=== PATIENT | female | born 1950 | race Caucasian/White ===

== ENCOUNTER → 2016-08-13 | Outpatient (CLI) | payer OTHER | LOC: BHFA 09:15 | PROVIDERS: ATTEND Internal Medicine Cardiovascular Disease | DX: Z51.11 Encounter for antineoplastic chemotherapy (principal) ==

== ENCOUNTER → 2016-10-08 | Outpatient (CLI) | payer OTHER | LOC: FIMAGING 09:26 | PROVIDERS: ATTEND Internal Medicine Hematology & Oncology | DX: C50.812 Malignant neoplasm of overlapping sites of left female breast (principal); C79.51 Secondary malignant neoplasm of bone | CPT/HCPCS: 78306; A9503 ==

== ENCOUNTER → 2016-11-12 | Outpatient (CLI) | payer OTHER | LOC: BHFA 14:45 | PROVIDERS: ATTEND Internal Medicine Cardiovascular Disease | DX: Z51.89 Encounter for other specified aftercare (principal) ==

== ENCOUNTER → 2017-02-03 | Outpatient (CLI) | payer OTHER | LOC: FIMAGING 09:18 | PROVIDERS: ATTEND Physician Assistant | DX: C79.51 Secondary malignant neoplasm of bone (principal); C50.812 Malignant neoplasm of overlapping sites of left female breast | CPT/HCPCS: 78306; A9503 ==

== ENCOUNTER → 2017-03-30 | Outpatient (CLI) | payer OTHER | LOC: FIMAGING 10:48 | PROVIDERS: ATTEND Internal Medicine Hematology & Oncology | DX: Z45.2 Encounter for adjustment and management of vascular access device (principal) ==

== ENCOUNTER → 2017-04-28 | Outpatient (CLI) | payer OTHER | LOC: FIMAGING 08:12 | PROVIDERS: ATTEND Internal Medicine Hematology & Oncology | PROC: CP1Z1ZZ Planar Nuclear Medicine Imaging of Musculoskeletal System, All using Technetium 99m (Tc-99m) (ICD-10-PCS; principal; 2017-04-28) | DX: C79.51 Secondary malignant neoplasm of bone (principal); C50.812 Malignant neoplasm of overlapping sites of left female breast | CPT/HCPCS: 78306; A9503 ==

== ENCOUNTER → 2017-05-27 | Outpatient (CLI) | payer OTHER ==
[~2017-05-27] MED LIST: GADOBUTROL 10 ML VIAL IVP ONE
== END ==
LOC: FIMAGING 19:26
PROVIDERS: ATTEND Nurse Practitioner
DX: R22.0 Localized swelling, mass and lump, head (principal); C50.812 Malignant neoplasm of overlapping sites of left female breast; D70.1 Agranulocytosis secondary to cancer chemotherapy
CPT/HCPCS: 70553; A9585

== ENCOUNTER 2018-08-17 16:27 | Inpatient (IN) | payer OTHER ==
[2018-08-17] MEDS ORDERED: AZITHROMYCIN IV 500 MG in NS 250 ML IV ONE (18:24)
--- NOTE | 2018-08-17 18:27 | EDPHY ---
H & P Stated Complaint: Pt SOB and fatigue x5D, syncopex2, SpO2 73RA, placed on O2, Rlung crackles Time Seen by Provider: 08/17/18 17:04 HPI/ROS: CHIEF COMPLAINT: Shortness of breath HISTORY OF PRESENT ILLNESS: 68-year-old female with stage IV breast cancer presents with shortness of breath. Onset of shortness of breath 2 weeks ago, gradually increasing. Now short of breath at rest. Oxygen saturation was 72% on room air prior to arrival. Associated with a cough x1 day and generalized weakness. Intermittent vomiting and diarrhea throughout last few weeks secondary to chemotherapy. No other URI symptoms or fever. Last chemotherapy was yesterday. REVIEW OF SYSTEMS: complete 10 point ROS reviewed and is negative except for the noted elements in the HPI - Personal History Current Tetanus/Diphtheria Vaccine: Yes Tetanus Vaccine Date: 05/26/12 - Medical/Surgical History PMH: Stage IV breast cancer Hx Asthma: No Hx Chronic Respiratory Disease: No Hx Diabetes: No Hx Cardiac Disease: No Hx Renal Disease: No Hx Cirrhosis: No Hx Alcoholism: No Hx HIV/AIDS: No Hx Splenectomy or Spleen Trauma: No Other PMH: Collagenous colitis, hypothyroid, depression, knee surgery , shoulder surgery 12 - Social History Smoking Status: Never smoked Alcohol Use: Sober Drug Use: None - Physical Exam Exam: General Appearance: Alert, pleasant, nontoxic-appearing Eyes: Pupils equal and round, no conjunctival pallor or injection ENT, Mouth: Mucous membranes moist Neck: Normal inspection Respiratory: Lungs are clear to auscultation Cardiovascular: Regular rate and rhythm Gastrointestinal: Abdomen is soft and nontender Neurological: A&O, nonfocal exam Skin: Warm and dry, no rash Ext: Nontender, no pedal edema Psychiatric: Mood and affect normal Constitutional: Initial Vital Signs Temperature (C) 36.4 C 08/17/18 16:41 Heart Rate 83 08/17/18 16:41 Respiratory Rate 18 08/17/18 16:41 Blood Pressure 111/63 08/17/18 16:41 O2 Sat (%) 92 08/17/18 16:41 O2 Delivery Mode Nasal Cannula O2 (L/minute) 3 Allergies/Adverse Reactions: SEASONAL Allergy (Intermediate, Uncoded 06/22/12 10:18) RUNNY NOSE/ ITCHY EYES Home Medications: Medication Instructions Recorded Citalopram [CeleXA 20 MG] 20 mg PO DAILY 11/29/13 Herbals/Supplements -Info Only 1 ea PO DAILY 12/14/15 Acetaminophen [Tylenol 325mg (*)] 325 mg PO BID 08/17/18 Ascorbic Acid [Vitamin C 500 mg 500 mg PO DAILY 08/17/18 (*)] Levothyroxine [Synthroid 50 mcg 50 mcg PO DAILY06 08/17/18 (*)] Neratinib Maleate [Nerlynx] 200 mg PO HS 08/17/18 Ondansetron HCl [Zofran] 8 mg PO BID 08/17/18 Pantoprazole Sodium [Protonix 40mg 40 mg PO DAILY 08/17/18 (*)] Silver Sulfadiazine [Ssd] 1 priti TP Q2D PRN 08/17/18 morphINE SR [Ms Contin/Oramorph 15 15 mg PO BID 08/17/18 mg (*)] oxyCODONE IR [Oxycodone Ir (*)] 5 mg PO Q6 PRN 08/17/18 Medical Decision Making - Diagnostics Imaging Results: Chest X-Ray 08/17/18 16:48 Impression: 1. Bilateral perihilar hazy opacities with retrocardiac reticulation. Findings may represent pneumonia or pneumonitis. 2. Enlarging left lung nodule. CT pulmonary angiogram reveals bilateral infiltrates consistent with pneumonia, as well as pulmonary embolism. Imaging: Discussed imaging studies w/ call center support consultant Radiologist, I viewed and interpreted images myself ED Course/Re-evaluation: This patient presents with gradually increasing shortness of breath, associated with cough. Chest x-ray reveals bilateral infiltrates, consistent with pneumonia. Leukocytosis present. Initial lactate is normal. Blood cultures were drawn and Rocephin and Zithromax IV given for probable pneumonia. The hospitalist service was consulted for admission. 7pm: Ddimer elevated, CTA chest ordered. CT pulmonary angiogram reveals bilateral pneumonia as well as pulmonary embolism. These results were discussed with Dr. Drew, as the patient had already gone to the floor for admission. He will decide on appropriate anticoagulation for this patient. Differential Diagnosis: Differential diagnosis includes though it is not limited to pneumonia, pneumothorax, pulmonary embolism, aortic dissection, pericarditis, acute coronary syndrome. - Data Points Laboratory Results: Laboratory Results 08/17/18 18:25 08/17/18 18:25 Microbiology Results: MICROBIOLOGY 08/17/18 18:45 Blood Blood Culture - Preliminary 08/17/18 18:25 Blood Blood Culture - Preliminary Medications Given: Albuterol (Proventil Neb) 3 ml IH Q4H PRN PRN Reason: WHEEZING/DYSPNEA Stop: 02/14/19 11:44 Last Admin: 08/19/18 13:33 Dose: 3 ml Azithromycin (Zithromax) 500 mg PO DAILY ANA PRN Reason: Protocol Stop: 09/17/18 08:59 Last Admin: 08/19/18 08:57 Dose: 500 mg Citalopram Hydrobromide (Celexa) 20 mg PO DAILY ANA Stop: 02/14/19 08:59 Last Admin: 08/19/18 08:57 Dose: 20 mg Enoxaparin Sodium (Lovenox) 48 mg SC BID [facility] Stop: 02/14/19 10:44 Last Admin: 08/19/18 09:00 Dose: 48 mg Ceftriaxone Sodium/Dextrose (Rocephin 1 Gm (Premix)) 50 mls @ 100 mls/hr IV DAILY ANA PRN Reason: Protocol Stop: 09/17/18 08:59 Last Admin: 08/19/18 08:57 Dose: 50 mls Levothyroxine Sodium (Synthroid) 50 mcg PO DAILY06 [facility] Stop: 02/14/19 05:59 Last Admin: 08/19/18 08:57 Dose: 50 mcg Miscellaneous Medication (Neratinib Maleate [Nerlynx]) 200 mg PO HS [facility] Stop: 02/13/19 21:14 Last Admin: 08/17/18 22:01 Dose: Not Given Morphine Sulfate (Ms Contin/Oramorph) 15 mg PO BID ANA Stop: 08/27/18 21:14 Last Admin: 08/19/18 08:58 Dose: 15 mg Ondansetron HCl (Zofran) 4 mg IVP Q4HRS PRN PRN Reason: Nausea/Vomiting, Can't Take PO Stop: 02/13/19 19:45 Last Admin: 08/17/18 19:45 Dose: 4 mg Ondansetron HCl (Zofran Odt) 4 mg PO Q4HRS PRN PRN Reason: Nausea/Vomiting, Use 1st Stop: 02/13/19 19:45 Last Admin: 08/17/18 20:49 Dose: 4 mg Oxycodone HCl (Oxycodone Ir) 5 mg PO Q6 PRN PRN Reason: Pain, Severe Able to Take PO Stop: 08/27/18 21:13 Last Admin: 08/19/18 03:41 Dose: 5 mg Pantoprazole Sodium (Protonix) 40 mg PO DAILY [facility] Stop: 02/14/19 08:59 Last Admin: 08/19/18 08:58 Dose: 40 mg Promethazine HCl (Phenergan) 12.5 mg IVP Q6HRS PRN PRN Reason: Nausea/Vomiting, Can't Take PO Stop: 02/13/19 20:40 Last Admin: 08/17/18 21:03 Dose: 12.5 mg Discontinued Medications Albuterol/Ipratropium (Duoneb) 3 ml IH QID [facility] Stop: 02/13/19 20:59 Last Admin: 08/17/18 21:13 Dose: 3 ml Azithromycin 500 mg/ Sodium (Chloride) 255 mls @ 255 mls/hr IV EDNOW ONE PRN Reason: Protocol Stop: 08/17/18 19:23 Last Admin: 08/17/18 19:23 Dose: 255 mls Ceftriaxone Sodium/Dextrose (Rocephin 1 Gm (Premix)) 50 mls @ 100 mls/hr IV EDNOW ONE PRN Reason: Protocol Stop: 08/17/18 18:53 Last Admin: 08/17/18 18:49 Dose: 50 mls Sodium Chloride (Ns) 1,000 mls @ 0 mls/hr IV ONCE ONE; Wide Open PRN Reason: Protocol Stop: 08/17/18 18:41 Last Admin: 08/17/18 18:53 Dose: 1,000 mls Methylprednisolone Sodium Succinate (Solu-Medrol) 60 mg IVP Q6HRS [facility] Stop: 02/15/19 11:59 Last Admin: 08/19/18 13:07 Dose: 60 mg Oxycodone HCl (Oxycodone Ir) 5 - 10 mg PO Q3HRS PRN PRN Reason: Pain, Severe Able to Take PO Stop: 08/27/18 19:45 Last Admin: 08/17/18 20:54 Dose: 10 mg Departure - Departure Disposition: [facility] Inpatient Acute Clinical Impression: Pneumonia Qualifiers: Pneumonia type: due to unspecified organism Laterality: bilateral Lung location : unspecified part of lung Qualified Code(s): J18.9 - Pneumonia, unspecified organism Pulmonary embolism Qualifiers: Pulmonary embolism type: unspecified Chronicity: acute Acute cor pulmonale presence: without acute cor pulmonale Qualified Code(s): I26.99 - Other pulmonary embolism without acute cor pulmonale Condition: Serious
[2018-08-17 18:37] LABS: PLATELET COUNT 282 10^3/uL (150-400)
[2018-08-17] MEDS ORDERED: NS 1,000 ML IV ONE (18:40)
[2018-08-17] MEDS ORDERED: IOHEXOL 350mgI/ML (OMNIPAQUE) 150 ML BTL IV ONE (19:11)
[2018-08-17] MEDS ORDERED: ONDANSETRON 4 MG/2 ML VIAL ONE (19:41)
[2018-08-17] MEDS: ONDANSETRON 4 MG/2 ML VIAL IVP PRN (19:45)
[2018-08-17] MEDS ORDERED: oxyCODONE IR 5 MG TAB PO PRN (19:46)
[2018-08-17] MEDS ORDERED: ONDANSETRON DISINTEGRATING 4 MG TAB PO PRN (19:46)
[2018-08-17] MEDS ORDERED: ALBUTEROL 60 PUFFS/8 GM MDI IH PRN (19:46)
[2018-08-17] MEDS ORDERED: ACETAMINOPHEN 325 MG TAB PO PRN (19:46)
[2018-08-17] MEDS ORDERED: PROMETHAZINE HCL 25 MG/ML INJ IVP PRN (20:41)
[2018-08-17] MEDS ORDERED: IPRATROPIUM/ALBUTEROL 3 ML DEYVIAL IH SCH (21:00)
--- NOTE | 2018-08-17 21:00 | CPEKG ---
Test Reason : OPEN Blood Pressure : / mmHG Vent. Rate : 067 BPM Atrial Rate : 068 BPM P-R Int : 157 ms QRS Dur : 093 ms QT Int : 451 ms P-R-T Axes : 047 003 -14 degrees QTc Int : 476 ms Sinus rhythm Abnrm T, consider ischemia, anterolateral lds Confirmed by Coby Beaulieu ([id number]) on 08/17/2018 9:00:17 PM Referred By: Coby Beaulieu Confirmed By:Coby Beaulieu
[2018-08-17] MEDS ORDERED: SILVER SULFADIAZINE 50 GM JAR TP PRN (21:14)
[2018-08-17] MEDS ORDERED: [UNRECOGNIZED DRUG - OTHER] PO SCH (21:15)
--- NOTE | 2018-08-17 21:54 | PDGENHP ---
History and Physical - Chief Complaint shortness of breath, fatigue - History of Present Illness 68yo F with breast cancer with metastases to brain, bone, lung, and skin presents with shortness of breath and fatigue. These symptoms started acutely after beginning a new anti-cancer therapy, neratinib in early July. She reports that her oncologist had reduced the dose of this medication but she was still exquisitely fatigued so came to ED today. She was found to have an oxygen saturation of 72% on room air. CXR shows what appeared to be bilateral pneumonia and she was given a dose of ceftriaxone and azithromycin. Given her history of malignancy and an elevated d-dimer, CTA of her chest was performed which showed right middle lobe PE and bilateral lower lobe infiltrates with air bronchograms. She is being admitted for further management. Case discussed with ED physician Coby Beaulieu. History Information - Allergies/Home Medication List Allergies/Adverse Reactions: SEASONAL Allergy (Intermediate, Uncoded 06/22/12 10:18) RUNNY NOSE/ ITCHY EYES Home Medications: Citalopram [CeleXA 20 MG] 20 mg PO DAILY 11/29/13 [Last Taken 08/17/18] Herbals/Supplements -Info Only 1 ea PO DAILY 12/14/15 [Last Taken 12/14/15] Acetaminophen [Tylenol 325mg (*)] 325 mg PO BID 08/17/18 [Last Taken 08/17/18] Ascorbic Acid [Vitamin C 500 mg (*)] 500 mg PO DAILY 08/17/18 [Last Taken ] Levothyroxine [Synthroid 50 mcg (*)] 50 mcg PO DAILY06 08/17/18 [Last Taken 11/28] Neratinib Maleate [Nerlynx] 200 mg PO HS 08/17/18 [Last Taken 08/15/18] Ondansetron HCl [Zofran] 8 mg PO BID 08/17/18 [Last Taken 08/17/18] Pantoprazole Sodium [Protonix 40mg (*)] 40 mg PO DAILY 08/17/18 [Last Taken 11/28] Silver Sulfadiazine [Ssd] 1 priti TP Q2D PRN 08/17/18 [Last Taken 08/15/18] morphINE SR [Ms Contin/Oramorph 15 mg (*)] 15 mg PO BID 08/17/18 [Last Taken 11/28] oxyCODONE IR [Oxycodone Ir (*)] 5 mg PO Q6 PRN 08/17/18 [Last Taken Unknown] I have personally reviewed and updated: family history, medical history, social history, surgical history - Past Medical History Additional medical history: metastatic HER2 + breast cancer (brain s/p stereotactic resection 06/2018, lung, skin, bone), depression, peripheral neuropathy, memory loss, iron deficiency anemia - Surgical History Additional surgical history: bilateral mastectomy w/axillary node dissection (2013) - Family History Positive for: non-pertinent - Social History Smoking Status: Never smoked Alcohol Use: None Drug Use: None Review of Systems Review of Systems: ROS: 10pt was reviewed & negative except for what was stated in HPI & below Physical Exam Physical Exam: Temp Pulse Resp BP Pulse Ox 36.4 C 79 16 111/63 96 08/17/18 16:41 08/17/18 21:14 08/17/18 21:14 08/17/18 16:41 08/17/18 21:14 O2 (L/minute) 10 Constitutional: no apparent distress, appears nourished, not in pain Eyes: PERRL, anicteric sclera, EOMI Ears, Nose, Mouth, Throat: moist mucous membranes, hearing normal, ears appear normal, no oral mucosal ulcers Cardiovascular: regular rate and rhythym, no murmur, rub, or gallop, No JVD, No edema Respiratory: inspiratory crackles, respiratory distress, No expiratory wheeze Gastrointestinal: normoactive bowel sounds, soft, non-tender abdomen, no palpable masses Genitourinary: no bladder fullness, no bladder tenderness Skin: warm Musculoskeletal: full muscle strength Neurologic: AAOx3, CN II-XII Intact, other (intermittently forgetful) Psychiatric: interacting appropriately Lab Data & Imaging Review 08/17/18 18:25 08/17/18 18:25 WBC 15.31 10^3/uL (3.80-9.50) H 08/17/18 18:25 RBC 2.86 10^6/uL (4.18-5.33) L 08/17/18 18:25 Hgb 9.8 g/dL (12.6-16.3) L 08/17/18 18:25 Hct 28.9 % (38.0-47.0) L 08/17/18 18:25 MCV 101.0 fL (81.5-99.8) H 08/17/18 18:25 MCH 34.3 pg (27.9-34.1) H 08/17/18 18:25 MCHC 33.9 g/dL (32.4-36.7) 08/17/18 18:25 RDW 13.8 % (11.5-15.2) 08/17/18 18:25 Plt Count 282 10^3/uL (150-400) 08/17/18 18:25 MPV 9.5 fL (8.7-11.7) 08/17/18 18:25 Neut % (Auto) Not Reported 08/17/18 18:25 Lymph % (Auto) Not Reported 08/17/18 18:25 [place] % (Auto) Not Reported 08/17/18 18:25 Eos % (Auto) Not Reported 08/17/18 18:25 Baso % (Auto) Not Reported 08/17/18 18:25 Nucleat RBC Rel Count Not Reported 08/17/18 18:25 Absolute Neuts (auto) Not Reported 08/17/18 18:25 Absolute Lymphs (auto) Not Reported 08/17/18 18:25 Absolute Monos (auto) Not Reported 08/17/18 18:25 Absolute Eos (auto) Not Reported 08/17/18 18:25 Absolute Basos (auto) Not Reported 08/17/18 18:25 Absolute Nucleated RBC Not Reported 08/17/18 18:25 Immature Gran % Not Reported 08/17/18 18:25 Seg Neutrophils % 90.0 % 08/17/18 18:25 Band Neutrophils % 0.0 % 08/17/18 18:25 Lymphocytes % 2.0 % 08/17/18 18:25 Monocytes % 8.0 % 08/17/18 18:25 Eosinophils % 0.0 % 08/17/18 18:25 Basophils % 0.0 % 08/17/18 18:25 Metamyelocytes % 0.0 % 08/17/18 18:25 Myelocytes % 0.0 % 08/17/18 18:25 Promyelocytes % 0.0 % 08/17/18 18:25 Blast Cells % 0.0 % 08/17/18 18:25 Immature Gran # Not Reported 08/17/18 18:25 Absolute Seg Neuts 13.78 10^3/uL (1.70-6.50) H 08/17/18 18: Absolute Band Neuts 0.00 10^3/uL (0.00-0.70) 08/17/18 18:25 Absolute Lymphocytes 0.31 10^3/uL (1.00-3.00) L 08/17/18 18: Absolute Monocytes 1.22 10^3/uL (0.30-0.80) H 08/17/18 18: Absolute Eosinophils 0.00 10^3/uL (0.03-0.40) L 08/17/18 18: Absolute Basophils 0.00 10^3/uL (0.02-0.10) L 08/17/18 18: Absolute Metamyelocyte 0.00 10^3/mL (0.00-0.00) 08/17/18 18: Absolute Myelocytes 0.00 10^3/mL (0.00-0.00) 08/17/18 18: Absolute Promyelocytes 0.00 10^3/uL (0.00-0.00) 08/17/18 18: Absolute Plasma Cells 0.00 10^3/uL (0.00-0.00) 08/17/18 18: Nucleated RBCs 0 /100 WBC (0-0) 08/17/18 18: Absolute Blast Cells 0.00 10^3/uL (0.00-0.00) 08/17/18 18: Plasma Cells % 0.0 % 08/17/18 18: Platelet Estimate ADEQUATE (ADEQ) 08/17/18 18:25 Oval Macrocytes 1+ H 08/17/18 18:25 D-Dimer 9.84 ug/mLFEU (0.00-0.50) H 08/17/18 18:25 VBG Lactic Acid 1.7 mmol/L (0.7-2.1) 08/17/18 18:25 Sodium 133 mEq/L (135-145) L 08/17/18 18:25 Potassium 3.8 mEq/L (3.5-5.2) 08/17/18 18:25 Chloride 109 mEq/L (97-110) 08/17/18 18:25 Carbon Dioxide 16 mEq/l (22-31) L 08/17/18 18:25 Anion Gap 8 mEq/L (6-14) 08/17/18 18:25 BUN 31 mg/dL (7-23) H 08/17/18 18:25 Creatinine 1.0 mg/dL (0.6-1.0) 08/17/18 18:25 Estimated GFR 55 08/17/18 18:25 Glucose 108 mg/dL (70-100) H 08/17/18 18:25 Calcium 7.7 mg/dL (8.5-10.4) L 08/17/18 18:25 NT-Pro-B Natriuret Pep 3490 pg/mL (0-125) H 08/17/18 18:25 Interpretation: CXR: bilateral lower lung field alveolar and interstitial opacities, no effusions, normal heart size, chest port in place EKG additional interpertation: ECG: NSR, no significant right heart strain, no acute ischemia Assessment & Plan Assessment: 68yo F with breast cancer with metastases to brain, bone, lung, and skin presents with shortness of breath and fatigue found to be hypoxic. Evaluation revealed PE and pneumonia vs pneumonitis. Plan: 1. Acute hypoxemic respiratory failure: Evidenced by respiratory distress and O2 saturation of 72% on room air. Due to PE and airspace disease. - Management of lung issues per below. Wean supplemental O2 as able 2. Pulmonary embolus: Acute vs subacute. At risk with cancer. PESI score 120 indicating high risk. BNP elevated but no right heart strain on CT. - I recommended starting weight based LMWH. She does have brain metastases but it's my opinion that benefits of anticoagulation outweigh risks in this situation. - Patient refusing this intervention, wants to discuss further with family and oncology. I explained the risks of not anticoagulating - worsening clot propagation, hypoxia, right heart strain, shock, . 3. Bilateral groundglass opacities: Query pneumonia vs chemo-induced pneumonitis. Resp viral PCR negative. - Treat for CAP with CTX and azithromycin for now - Check procalcitonin - Holding neratinib 4. Metastatic breast cancer - Alert oncology of admission in AM 5. Anemia: Hgb slightly lower than baseline. Would monitor closely once/if anticoagulation started. 6. Memory loss: Related to brain mets. She is oriented but frequently forgetful when speaking with her. Code: DNR Diet: regular Dispo: Admit as inpatient
[2018-08-17] MEDS: morphINE SR 15 MG TAB PO SCH (21:59)
[2018-08-17] MEDS ORDERED: ENOXAPARIN 60 MG/0.6 ML SYR SC SCH (23:30)
[2018-08-18] MEDS: LEVOTHYROXINE 50 MCG TAB PO SCH (05:36)
[2018-08-18 06:07] LABS: PLATELET COUNT 241 10^3/uL (150-400)
[2018-08-18] MEDS: AZITHROMYCIN 250 MG TAB PO SCH (08:36)
[2018-08-18] MEDS: PANTOPRAZOLE SODIUM 40 MG TAB PO SCH (08:36)
[2018-08-18] MEDS: morphINE SR 15 MG TAB PO SCH ×2 (08:36→20:13)
[2018-08-18] MEDS: CITALOPRAM 20 MG TAB PO SCH (08:37)
[2018-08-18] MEDS ORDERED: ENOXAPARIN 40 MG/0.4 ML SYR SC SCH (09:00)
[2018-08-18] MEDS ORDERED: ALTEPLASE 2 MG VIAL IVP PRN (10:56)
[2018-08-18] MEDS: ENOXAPARIN 60 MG/0.6 ML SYR SC SCH ×2 (11:51→20:11)
[2018-08-18] MEDS: ALBUTEROL 3 ML DEYVIAL IH PRN (12:04)
--- NOTE | 2018-08-18 17:11 | HOSPPROG ---
Hospitalist Progress Note Assessment/Plan: 68-year-old female with past medical history of stage IV metastatic breast cancer, with mets to the brain bone and lung admitted with acute pulmonary embolism and likely bacterial pneumonia. Plan: Acute hypoxemic respiratory failure: Requiring 15 L high-flow mask currently. Etiology likely secondary to pneumonia and pulmonary embolism. Initially refused Lovenox treatment but after some discussion with patient and family now amenable to it. -treat pneumonia with Rocephin and azithromycin -treat PE with Lovenox twice daily -oxygen p.r.n. -nebs -monitor cultures Pulmonary embolus: CT reviewed showing subsegmental pulmonary embolus. Patient initially refusing Lovenox. After some discussion patient and family more amenable to it now. I discussed the case with Hematology/Oncology who, despite brain Mets, feels anticoagulation is warranted given her respiratory status. -start Lovenox now Bilateral groundglass opacities: Query pneumonia vs chemo-induced pneumonitis. Resp viral PCR negative. - Treat for CAP with CTX and azithromycin for now - Holding neratinib Metastatic breast cancer- oncology will see patient while here. Discussion with patient's family suggest prognosis is grim. - oncology will see patient today Anemia: Hgb slightly lower than baseline. Would monitor closely once/if anticoagulation started. Memory loss: Related to brain mets. She is oriented but frequently forgetful when speaking with her. Fluids- gentle intravenous saline Electrolytes- within normal limits Nutrition regular diet Cor DNR Dispo inpatient for acute hypoxemic respiratory failure with acute pulmonary embolus and bacterial pneumonia in setting of stage IV metastatic breast cancer Subjective: Patient short of breath but in no pain Objective: Vital Signs Temp Pulse Resp BP Pulse Ox 37.3 C 96 18 101/50 L 94 08/18/18 12:00 08/18/18 12:00 08/18/18 12:00 08/18/18 12:00 08/18/18 12:00 Laboratory Results 08/18/18 05:43 08/18/18 05:43 08/17/18 08/18/18 08/19/18 05:59 05:59 05:59 Intake Total 25 Balance 25 - Physical Exam Constitutional: chronically ill appearing, cachectic Eyes: PERRL, anicteric sclera, EOMI Ears, Nose, Mouth, Throat: moist mucous membranes, hearing normal, ears appear normal, no oral mucosal ulcers Cardiovascular: tachycardia Respiratory: reduced air movement, inspiratory crackles Gastrointestinal: normoactive bowel sounds, soft, non-tender abdomen, no palpable masses Genitourinary: no bladder fullness, no bladder tenderness, no renal bruits Skin: no rashes or abrasions, no fluctuance, no induration Musculoskeletal: generalized weakness Neurologic: AAOx3 Psychiatric: poor memory Lymph, Heme, Immunologic: no cervical LAD ICD10 Worksheet Patient Problems: Problems Problem Status Onset Adenocarcinoma of breast Acute Breast cancer metastasized to brain Acute
--- NOTE | 2018-08-18 18:21 | ASMTCMCOM ---
CM Note CM Note Notes: Pt admitted to hospital with sob, angio CT shows PE. Pt also has a hx of breast ca w/mets. Currently on 15L O2, dc needs uncertain, CM w/f. DC Plan: TBD Date Signed: 08/18/2018 06:20 PM Electronically Signed By:Larissa Olvera RN
--- NOTE | 2018-08-18 18:30 | GCON ---
[f rep st] CONSULTATION MEDICAL ONCOLOGY FOLLOWUP CONSULTATION REFERRING PHYSICIAN: Danni Roberst NP REASON FOR CONSULTATION: Ongoing management of relapsed refractory breast cancer, pulmonary embolism , and hypoxia. RECOMMENDATIONS: 1. Agree with empiric antibiotic therapy of the patient's pulmonary infiltrates. 2. Agree with Lovenox for her pulmonary embolism. 3. Would consider placing patient on steroids if her respiratory status deteriorates. 4. Further treatment of the patient's metastatic breast cancer will need to be discussed after her s tabilization. The question will be whether we think that the pneumonitis ultimately is related to ei ther her paclitaxel or neratinib. ASSESSMENT: This is a 68-year-old white female with history of metastatic breast cancer that is trip le positive, is now admitted with increasing shortness of breath and weakness. This came on over a p eriod of several days. She was very lightheaded. She was admitted to [facility] and found to have right lower lobe pulmonary embolism, as well as significant hypoxia, and changes consi stent pneumonitis in her lungs, as well as enlarging nodules. It is currently unclear as to the etio logy of her pneumonitis. This could potentially be related to infection, but evaluation for a viral etiology was negative. She could have potentially interstitial infiltration with her breast cancer o r could potentially be a pneumonitis related to paclitaxel. I do not see where neratinib was associa diya with pneumonitis, but there was a temporal relation to her increasing shortness of breath and sta rting the neratinib. The patient understands she is nearly at the end of her options for therapy. She wishes to be do not resuscitate and has also been evaluating her rights under the Medical Aid in Dying Act; however, hav ing said that, she is hopeful that she will have some good quality time left and that is her current goal. Her history of her breast cancer dates back to November of 2013. At that time, she had a T3 N2a di sease. She has had metastatic disease to her bones, lung, brain, and scalp. She was receptor positi ve, progesterone receptor positive, and HER-2 positive at 3+. Her treatment thus far has included a total mastectomy with axillary lymph node dissection in November of 2013. She had 4 positive lymph nodes. She had adjuvant Taxotere. For metastatic disease, she has had ado-trastuzumab emtansine. This wa s started in July 2015 for recurrent disease initially. She was also treated with pertuzumab and trastuzumab as part of her adjuvant therapy and that was in January of 2014, through the end of 2014. S he has had radiotherapy to metastatic sites of disease, including her scalp. Total dose was 3000 cGy . Her hormonal therapy has included anastrozole and fulvestrant. Her bone health agent has been zol edronic acid. PAST MEDICAL HISTORY: Otherwise been remarkable for hypothyroidism, depression, osteoarthritis, and collagenous colitis. PAST SURGICAL HISTORY: Remarkable for right knee surgery, left shoulder surgery, and her mastectomy with axillary node dissection. FAMILY HISTORY: Remarkable for father with prostate cancer, paternal aunt with pancreatic cancer, a sister dying of lung cancer, and another brother who had prostate cancer. There is no family history of ovarian cancer apparently. SOCIAL HISTORY: Patient does not smoke. 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 She has 1 daughter. REVIEW OF SYSTEMS: Remarkable for shortness of breath and extreme fatigue. She has had dizziness. She reports no significant pain, and no nausea or vomiting at this time. Ten-system review is, other verduzco, unremarkable. PHYSICAL EXAMINATION: GENERAL: Reveals a pale, but alert and conversant white female. She is curre ntly using an oxygen at 15 L via mask. LUNGS: Reveal diffuse rhonchi, rales, and rubs that are loud est in her right anterior lung field. CARDIAC: Shows a regular rhythm at this time. ABDOMEN: Norm al bowel sounds. Soft abdomen. No hepatosplenomegaly. LOWER EXTREMITIES: Show no significant stacie a. IMAGING: She was noted on CT angiogram of the chest to have subsegmental pulmonary emboli, right mid dle lobe. She had bilateral ground-glass opacities, which were more prominent in the right lower lob e. It shows bilateral pulmonary nodules, largest of which is 1.1 x 1.2 cm and also mucous plugging w ithin the bronchi. There is also a 1.3 x 1.2 cm round lesion within the right breast. She has galls tones and mediastinal and hilar lymphadenopathy. She is also noted to have osseous metastatic lesion s in her sternum and ribs. LABORATORY: Evaluation shows white count 11.06 with a hemoglobin of 9.5 and a platelet count of 241, 000. Her kidney function is normal with a creatinine of 0.9. Her calcium is slightly low at 7.1. Thank you very much for allowing us to participate in this pleasant woman's care. We will look forwa rd to assisting with her management. /[id number]/YENYL
--- NOTE | 2018-08-18 18:38 | PDMN ---
Medical Necessity Medical necessity: MCG M290 A-4 days: 68 yo w/ acute PE and bacterial pneumonia in setting of stage IV breast ca w/ mets brain/bone/lung in acute hypoxemic resp failure w/ SOB requiring 15L high flow mask still w/ difficulty maintain sats in 90s. Change to IP status 08/18/18@1706 per MD order.
[2018-08-19] MEDS: oxyCODONE IR 5 MG TAB PO PRN ×2 (03:41→19:50)
[2018-08-19] MEDS: CITALOPRAM 20 MG TAB PO SCH (08:57)
[2018-08-19] MEDS: AZITHROMYCIN 250 MG TAB PO SCH (08:57)
[2018-08-19] MEDS: LEVOTHYROXINE 50 MCG TAB PO SCH (08:57)
[2018-08-19] MEDS: PANTOPRAZOLE SODIUM 40 MG TAB PO SCH (08:58)
[2018-08-19] MEDS: morphINE SR 15 MG TAB PO SCH ×2 (08:58→21:04)
[2018-08-19] MEDS: ENOXAPARIN 60 MG/0.6 ML SYR SC SCH ×2 (09:00→21:04)
[2018-08-19] MEDS ORDERED: methylPREDNISolone SOD SUCC 125 MG/2 ML VIAL IVP SCH (12:00)
[2018-08-19] MEDS: ALBUTEROL 3 ML DEYVIAL IH PRN (13:33)
[2018-08-19 14:14] LABS: PLATELET COUNT 188 10^3/uL (150-400)
--- NOTE | 2018-08-19 15:10 | ASMTCMCOM ---
CM Note CM Note Notes: Pts case discussed w/ Dr. Powell. Pt is on 15L of o2. CM spoke to pts sister in law Elver (P#: [phone]) who is a EDUCATIONAL ADVISOR. Elver reports that she has brought pts 5 wishes in. Elver reports that pt would like to be comfort measures only. Elver would like palliative to be ordered. Elver reports that pt will be getting the meds for the assisted suicide. CM to follow. Plan: TBD Date Signed: 08/19/2018 03:10 PM Electronically Signed By:TATY Ortega
--- NOTE | 2018-08-19 15:33 | SOAPPROG ---
SOAP Progress Note Assessment/Plan: Assessment: - metastatic breast CA - recent treatment with paclitaxel and neratinib - it is somewhat unclear, but her current pneumonitis may be treatment related. - pneumonitis/resp failure - Her O2 requirements are increasing. The plan is to transfer her to the SDU for closer monitoring and optimization The patient's goal is to improve enough to get back home. Plan: txn to SDU per hospitalist service I discussed the patient's current status with her primary oncologist (Dr. Crystal Vyas), who will be rounding for us over the weekend. Subjective: Very breathless when going to bathroom. Objective: Vital Signs Temp Pulse Resp BP Pulse Ox 36.7 C 72 18 115/58 L 93 08/19/18 08:00 08/19/18 08:00 08/19/18 08:00 08/19/18 08:00 08/19/18 08:00 Laboratory Results 08/19/18 13:30 08/19/18 13:30 08/17/18 08/18/18 08/19/18 23:59 23:59 23:59 Intake Total 25 Balance 25 Physical Exam - Physical Exam General Appearance: alert, moderate distress Respiratory: respiratory distress, crackles, rales, rhonchi, No wheezing Cardiac/Chest: tachycardia Abdomen: normal bowel sounds Skin: warm/dry Neuro/Psych: alert, oriented x 3 ICD10 Worksheet Patient Problems: Problems Problem Status Onset Adenocarcinoma of breast Acute Breast cancer metastasized to brain Acute
--- NOTE | 2018-08-19 15:33 | ECHO ---
[email or web address] [address] Main: [phone] Fax: Transthoracic Echocardiogram Name: MOLLY YI MR#: [id number] Study Date: 08/19/2018 Study Time: 02:32 PM Date of : 1950 Age: 68 year(s) Height: 162.6 cm (64 in.) Weight: 47.63 kg (105 lb.) BSA: 1.49 m2 Gender: Female Examination: Echo Indication: Shortness of breath, cardiomegaly Image Quality: Adequate Contrast: Requested by: Antonio Menjivar BP: 115 mmHg/58 mmHg Heart Rate: Rhythm: Indication: Shortness of breath, cardiomegaly Procedure Staff Associate Store Director: Gin Fuchs RDCS Reading Physician: Addison Harper MD Requesting Provider: Conclusions: Normal study Measurements: Chambers Valvular Assessment AV/MV Valvular Assessment TV/PV Normal Normal Normal Name Value Range Name Value Range Name Value Range Ao Julianne (2D): 2.7 cm (1.4 cm-2.6 AV Vmax: 1.53 m/s (1 m/s-1.7 TR Vmax: 3.00 mm/s ( - ) cm) m/s) TR PGmax: 36 mmHg ( - ) IVSd (2D): 0.9 cm (0.6 cm-1.1 AV maxP mmHg ( - ) syst. PAP: 41 mmHg ( - ) cm) AV meanP mmHg ( - ) PV Vmax: 0.81 m/s (0.6 m/s-0.9 LVDd (2D): 3.8 cm (3.9 cm-5.3 DILMA (VTI): 2.3 cm ( - ) m/s) cm) MV E Vmax: 0.89 m/s ( - ) PV PGmax: 3 mmHg ( - ) LVDs (2D): 2.3 cm (2.1 cm-4 MV A Vmax: 0.90 m/s ( - ) cm) MV E/A: 0.99 ( - ) LVPWd (2D): 0.8 cm ( - ) MV PHT: 0.062 s ( - ) LVOTd 1.8 cm 1.8 cm mm MVA (PHT): 3.5 s ( - ) Visual EF: 60 % RVDd(2D): 2.7 cm (1.9 cm-3.8 cmmm) Continued Measurements: Chambers Valvular Assessment AV/MV Valvular Assessment TV/PV Name Value Name Value Name Value LADs: 2.8 cm MV DecTime: 194 m/s CVP (est.): 5 mmHg MV E' Septal: 0.10 m/s MV E/E' Septal: 9.30 MV E/E' Lateral: 7.50 Additional Vessels Patient: MOLLY YI Study Date: 08/19/2018 Page 1 of 2 02:32 PM Name Value Ao Ascendin.8 cm Inferior Vena Cava: 1.6 cm Findings: Left Ventricle: Normal size left ventricle. No LV hypertrophy. Normal global systolic LV function. The ejection fraction is visually estimated to be 60 %. No regional wall motion abnormality. Normal diastolic LV function. Right Ventricle: Mildly dilated right ventricle. Normal RV function. Left Atrium: The left atrium is normal in size. Right Atrium: The right atrium is normal in size. Mitral Valve: The mitral valve is normal in appearance and function. Trivial to mild mitral regurgitation. No mitral stenosis is present. Aortic Valve: The aortic valve is tri-leaflet. There is no significant aortic valve regurgitation. No aortic valve stenosis is present. Tricuspid Valve: The tricuspid valve is normal in appearance and function. Mild tricuspid regurgitation is present. The pulmonary artery pressure is mildly increased. Right ventricular systolic pressure measures 41mmHg. Pulmonic Valve: The pulmonic valve is normal in appearance and function. Aorta: The aorta is normal. Normal size aortic root measuring 2.7 cm. Normal size ascending aorta measuring 2.8 cm. IVC: The IVC is normal sized. Pericardium: No pericardial effusion. Exam Comments: Technically difficult, patient very thin, breast implants, on oxygen. (No Signature Object) Patient: MOLLY YI Study Date: 08/19/2018 Page 2 of 2 02:32 PM [id number]
--- NOTE | 2018-08-19 15:44 | GCON ---
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 HISTORY OF PRESENT ILLNESS: The patient is a 68-year-old white female with a past medical history in cluding metastatic breast cancer with mets to skin, lung and bone. She also has peripheral neuropath y, depression, and anemia. She began a new anticancer therapy called neratinib in July. She was complaining of significant fatigue. She was brought to the emergency room, found to be markedly hypo xemic, and admitted to the hospital with a diagnosis of bilateral pneumonia. She was begun on broad- spectrum antibiotics. Over the last 24 hours, she has had a worsening breathlessness, as well as hyp oxemia. She is currently on Vapotherm and satting quite well. She admits to a cough that is distinc tly nonproductive. There is no chest pain, pleuritic-type chest pain or angina equivalent. There is no fever or night sweats. I was asked to see the patient by Dr. Chemo Drew. ALLERGIES: No known allergies to medication. PAST MEDICAL HISTORY: Significant for depression, peripheral neuropathy, metastatic breast cancer. PAST SURGERIES: She has had a bilateral mastectomy. FAMILY HISTORY: Noncontributory. SOCIAL HISTORY: No tobacco use. No history of alcohol use. She is and has excellent family support. MEDICATIONS: At home include Celexa, Tylenol, vitamin C, Synthroid, Nerlynx, Zofran, Protonix, MS Co ntin, oxycodone. REVIEW OF SYSTEMS: 10-point review of systems was performed and negative except for what is listed i n HPI. PHYSICAL EXAM: VITAL SIGNS: Blood pressure 115/58, pulse 72, respiration 18, temperature 36.7, oxyg en saturation 95% on Vapotherm. GENERAL: She is a thin, 68-year-old white female who is in mild res piratory distress. HEENT: Eyes are PERRLA, EOMI. Throat shows no erythema or tonsillar hypertrophy . NECK: Supple. There is no cervical adenopathy. HEART: Regular rate and rhythm with a 2/6 systo lic murmur at left sternal border without radiation. LUNGS: Show diminished breath sounds and few b ibasilar crackles, but there is no wheeze. ABDOMEN: Soft, nontender. Bowel sounds are present in a ll 4 quadrants. EXTREMITIES: Show no clubbing, cyanosis, or edema. LABORATORIES: White count is 10.2, hemoglobin 9, hematocrit 26, platelet count is 188, MCV is 101. Sodium 135, potassium 3.3, chloride 110, CO2 is 20, BUN 16, creatinine 0.7, glucose is 106. Arterial blood gas: pH 7.45, pCO2 of 26, pO2 of 59, bicarb 18, oxygen saturation 91%. Chest x-ray reveals g round-glass opacifications in all lung branch. CT scan of the chest dated July 17, 2018: There is a subsegmental pulmonary embolus in the right middle lobe. There are bilateral ground-glass opacifi cations. There are multiple pulmonary nodules in the left lower lobe. There is mucus plugging in th e bronchi. IMPRESSION: 1. Pulmonary embolus. 2. Diffuse pneumonia, which is likely community-acquired, but given the fact that she is on chemothe rapy, must take into consideration that she is somewhat immunocompromised. 3. Acute hypoxemic respiratory failure. 4. Metastatic breast cancer. 5. Depression. 6. Anemia. RECOMMENDATIONS: 1. Agree with current medications. 2. Anticoagulation. Patient currently on enoxaparin. 3. Agree with starting IV steroids. She is currently on methylprednisolone 60 mg q.6. We will incr ease this to 125. 4. Continue high-flow oxygen and wean as tolerated. 5. DVT and PE prophylaxis. 6. Stress ulcer prophylaxis. 7. Adequate pain control. /[id number]/MODL
--- NOTE | 2018-08-19 16:06 | HOSPPROG ---
Hospitalist Progress Note Assessment/Plan: 68-year-old female with past medical history of stage IV metastatic breast cancer, with mets to the brain bone and lung admitted with acute pulmonary embolism, acute hypoxemic respiratory failure, and possible pneumonitis. Plan: Acute hypoxemic respiratory failure: Requiring 15 L high-flow mask on admission. Oxygen requirements increased today. she got up to go to the bathroom and sats dropped to 70% and never came back up. Now on Vapotherm at 25 liters. Etiology likely secondary to CAP,pulmonary embolism, but possibly she has a pneumonitis due to chemo. Initially refused Lovenox treatment but after some discussion with patient and family now amenable to it. -treat pneumonia with Rocephin and azithromycin -treat PE with Lovenox twice daily -started solumedrol today -pulm consulted -transfer to SDU -TTE pending -oxygen p.r.n. -nebs -monitor cultures Pulmonary embolus: CT reviewed showing subsegmental pulmonary embolus. Patient initially refusing Lovenox. After some discussion patient and family more amenable to it now. I discussed the case with Hematology/Oncology who, despite brain Mets, feels anticoagulation is warranted given her respiratory status. -cont lovenox Bilateral groundglass opacities: Query pneumonia vs chemo-induced pneumonitis. Resp viral PCR negative. - Treat for CAP with CTX and azithromycin for now -pulmonology consulted, starting steroids - Holding neratinib Metastatic breast cancer- oncology will see patient while here. Discussion with patient's family suggest prognosis is grim. - oncology following, holding Anemia: Hgb slightly lower than baseline. Would monitor closely once/if anticoagulation started. Memory loss: Related to brain mets. She is oriented but frequently forgetful when speaking with her. Fluids- gentle intravenous saline Electrolytes- within normal limits Nutrition regular diet Cor DNR Dispo inpatient for acute hypoxemic respiratory failure with acute pulmonary embolus and bacterial pneumonia in setting of stage IV metastatic breast cancer Subjective: no complaints. feels breathing is about the same. Objective: Vital Signs Temp Pulse Resp BP Pulse Ox 36.8 C 83 20 96/50 L 92 08/19/18 15:50 08/19/18 15:50 08/19/18 15:50 08/19/18 15:50 08/19/18 15:50 Laboratory Results 08/19/18 13:30 08/19/18 13:30 08/18/18 08/19/18 08/20/18 05:59 05:59 05:59 Intake Total 25 Balance 25 - Physical Exam Constitutional: no apparent distress, appears nourished, not in pain Eyes: PERRL, anicteric sclera, EOMI Ears, Nose, Mouth, Throat: moist mucous membranes, hearing normal, ears appear normal, no oral mucosal ulcers Cardiovascular: regular rate and rhythym, no murmur, rub, or gallop Respiratory: reduced air movement, inspiratory crackles Gastrointestinal: normoactive bowel sounds, soft, non-tender abdomen, no palpable masses Genitourinary: no bladder fullness, no bladder tenderness, no renal bruits Skin: no rashes or abrasions, no fluctuance, no induration Musculoskeletal: generalized weakness Neurologic: AAOx3 Psychiatric: interacting appropriately, poor insight, poor memory Lymph, Heme, Immunologic: no cervical LAD, no supraclavicular LAD ICD10 Worksheet Patient Problems: Problems Problem Status Onset Adenocarcinoma of breast Acute Breast cancer metastasized to brain Acute
[2018-08-19] MEDS: methylPREDNISolone SOD SUCC 125 MG/2 ML VIAL IVP SCH (17:46)
[2018-08-19] MEDS ORDERED: NS 500 ML IV ONE (19:00)
[2018-08-19] MEDS: LORazepam 0.5 MG TAB PO PRN (20:14)
[2018-08-20] MEDS: methylPREDNISolone SOD SUCC 125 MG/2 ML VIAL IVP SCH ×4 (00:04→17:56)
[2018-08-20] MEDS: ALBUTEROL 3 ML DEYVIAL IH PRN (03:40)
[2018-08-20] MEDS: oxyCODONE IR 5 MG TAB PO PRN ×2 (04:06→17:55)
[2018-08-20] MEDS: LORazepam 0.5 MG TAB PO PRN ×2 (04:07→17:56)
[2018-08-20] MEDS: morphINE SR 15 MG TAB PO SCH ×2 (07:47→20:37)
[2018-08-20] MEDS: AZITHROMYCIN 250 MG TAB PO SCH (07:47)
[2018-08-20] MEDS: LEVOTHYROXINE 50 MCG TAB PO SCH (07:47)
[2018-08-20] MEDS: PANTOPRAZOLE SODIUM 40 MG TAB PO SCH (07:47)
[2018-08-20] MEDS: CITALOPRAM 20 MG TAB PO SCH (07:47)
[2018-08-20] MEDS: ENOXAPARIN 60 MG/0.6 ML SYR SC SCH ×2 (08:50→20:37)
[2018-08-20 09:09] LABS: PLATELET COUNT 160 10^3/uL (150-400)
--- NOTE | 2018-08-20 09:29 | PDINTPN ---
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 * Acute hypoxemic respiratory failure-secondary to above. Etiology which is unclear. Echo shows good ejection fraction. Oxygen requirements are markedly elevated from yesterday. Neither Paclitaxel or neratinib are known to cause pneumonitis -check chest x-ray -continue high-dose steroids * Peripheral neuropathy * VT prophylaxis * Stress ulcer prophylaxis Subjective: Sitting up in bed. On high-flow oxygen. Comfortable. Slept well last night. Objective: Vital Signs Temp Pulse Resp BP Pulse Ox 36.8 C 69 22 H 90/56 L 91 L 08/20/18 07:53 08/20/18 07:53 08/20/18 07:53 08/20/18 07:53 08/20/18 07:53 Laboratory Results 08/20/18 08:50 08/19/18 08/20/18 08/21/18 05:59 05:59 05:59 Intake Total 500 Balance 500 - Time Spent With Patient Time Spent With Patient: 35 min of time spent with patient, over 1/2 involved with coordination of care or counseling. Case discussed with nursing Physical Exam - Physical Exam General Appearance: alert, mild distress EENT: PERRL/EOMI Neck: non-tender, full range of motion Respiratory: respiratory distress (Moderate), crackles, wheezing Cardiac/Chest: normal peripheral pulses, regular rate, rhythm, systolic murmur Peripheral Pulses: 2+: carotid (R), carotid (L), femoral (R), femoral (L), dorsalis-pedis (R), dorsalis-pedis (L) Abdomen: normal bowel sounds, non-tender, soft Pelvic Exam: deferred Rectal: deferred Skin: normal color, warm/dry Extremities: normal range of motion, non-tender, normal inspection, normal capillary refill Neuro/Psych: no motor/sensory deficits, alert, normal mood/affect, oriented x 3 ICD10 Worksheet Patient Problems: Problems Problem Status Onset Adenocarcinoma of breast Acute Breast cancer metastasized to brain Acute
--- NOTE | 2018-08-20 10:10 | HOSPPROG ---
Hospitalist Progress Note Assessment/Plan: 68-year-old female with past medical history of stage IV metastatic breast cancer, with mets to the brain bone and lung admitted with acute pulmonary embolism, acute hypoxemic respiratory failure, and pneumonitis. DIAGNOSES: * Acute hypoxemic respiratory failure * Pulmonary embolus, acute * Severe diffuse bilateral pneumonitis, infectious verses inflammatory due to cancer therapy * Metastatic breast cancer stage IV, on paclitaxel and neratinib; known mets to brain and lung * Chronic pain of cancer, on analgesics * Anemia related to malignancy and its treatment * Peripheral neuropathy from breast cancer meds * Depression * Memory loss PLANS: * Continue Vapotherm therapy for hypoxemia * Continue Lovenox at this time * Continue Rocephin azithromycin * Continue steroids currently Solu-Medrol 125 q.6 * Diuresis ordered to see if this will help get better aeration of lungs and oxygenation * Continue current pain regimen * Stress ulcer prophylaxis Seen on hospitalist rounds as well as multidisciplinary ICU rounds today Reviewed with Dr. 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, my review: Sinus Exam: alert oriented skin warm dry color ok resps not labored lungs good air movement but marked good rhonchorous breath sounds with some rales heart regular abd soft nondistended nontender, bowel sounds present limbs warm, no edema iv site ok Lab data: WBC up to 13,000 likely due to steroids Hemoglobin slightly improved Platelets stable Slightly low CO2 on chemistry likely due to borderline high chloride Otherwise stable chemistry panel Imaging: I reviewed images from today's portable chest x-ray showing diffuse extensive bilateral infiltrates unchanged from the prior day Objective: Vital Signs Temp Pulse Resp BP Pulse Ox 36.8 C 69 22 H 90/56 L 91 L 08/20/18 07:53 08/20/18 07:53 08/20/18 07:53 08/20/18 07:53 08/20/18 07:53 Laboratory Results 08/20/18 08:50 08/20/18 08:50 0208/20/18 08/21/18 06:59 06:59 06:59 Intake Total 500 Balance 500 - Time Spent With Patient Time Spent with Patient: greater than 35 minutes Time Spent with Patient: Greater than 35 minutes spent on this patients care, greater than 50% of time spent counseling, educating, and coordinating care regarding the above mentioned plan. ICD10 Worksheet Patient Problems: Problems Problem Status Onset Adenocarcinoma of breast Acute Breast cancer metastasized to brain Acute
--- NOTE | 2018-08-20 11:30 | ASMTCMCOM ---
CM Note CM Note Notes: Patient to meet with Palliative Care Team today. CM will follow. Date Signed: 08/20/2018 11:28 AM Electronically Signed By:Ladonna Jacome LCSW
[2018-08-20] MEDS ORDERED: FUROSEMIDE 40 MG/4 ML VIAL IVP ONE (12:00)
--- NOTE | 2018-08-20 16:54 | SOAPPROG ---
SOAP Progress Note Assessment/Plan: Assessment: - metastatic breast CA - recent treatment with paclitaxel and neratinib - it is somewhat unclear, but her current pneumonitis may be treatment related. - pneumonitis/resp failure - Her O2 requirements are increasing. The plan is to transfer her to the SDU for closer monitoring and optimization. Although not common, paclitaxel has been associated with pneumonitis (reported in <1% of patients exposed to this drug). The patient's goal is to improve enough to get back home. She is currently being treat with maximal medical therapy. The patient and her family reaffirm that she DOES NOT WISH TO BE INTUBATED Plan: - continue maximal medical therapy - I discussed the patient's current status with her primary oncologist (Dr. Crystal Vyas), who will be rounding for us over the weekend. Subjective: Feels like she is slightly less short of breath this PM than this AM Objective: Vital Signs Temp Pulse Resp BP Pulse Ox 36.8 C 67 21 H 102/53 L 92 08/20/18 07:53 08/20/18 11:41 08/20/18 11:41 08/20/18 11:41 08/20/18 11:41 Laboratory Results 08/20/18 08:50 08/20/18 08:50 08/18/18 08/19/18 08/20/18 23:59 23:59 23:59 Intake Total 25 400 100 Output Total 450 Balance 25 400 -350 Physical Exam - Physical Exam General Appearance: moderate distress Respiratory: respiratory distress, accessory muscle use, rales (diffuse) Cardiac/Chest: tachycardia Neuro/Psych: No depressed affect ICD10 Worksheet Patient Problems: Problems Problem Status Onset Adenocarcinoma of breast Acute Breast cancer metastasized to brain Acute
[2018-08-20] MEDS: LORazepam 0.5 MG TAB PO SCH (20:37)
[2018-08-21] MEDS: methylPREDNISolone SOD SUCC 125 MG/2 ML VIAL IVP SCH ×4 (00:20→18:29)
[2018-08-21] MEDS: LORazepam 0.5 MG TAB PO PRN (03:21)
[2018-08-21] MEDS: oxyCODONE IR 5 MG TAB PO PRN ×2 (03:21→16:26)
[2018-08-21 06:46] LABS: PLATELET COUNT 126 10^3/uL (150-400)
[2018-08-21] MEDS: LORazepam 0.5 MG TAB PO SCH ×2 (08:55→20:53)
[2018-08-21] MEDS: CITALOPRAM 20 MG TAB PO SCH (08:56)
[2018-08-21] MEDS: morphINE SR 15 MG TAB PO SCH ×2 (08:56→20:53)
[2018-08-21] MEDS: PANTOPRAZOLE SODIUM 40 MG TAB PO SCH (08:57)
[2018-08-21] MEDS: LEVOTHYROXINE 50 MCG TAB PO SCH (08:57)
[2018-08-21] MEDS: ENOXAPARIN 60 MG/0.6 ML SYR SC SCH ×2 (09:01→20:53)
[2018-08-21] MEDS: AZITHROMYCIN 250 MG TAB PO SCH (09:02)
--- NOTE | 2018-08-21 09:49 | PDINTPN ---
Hepatologist Progress Note Assessment/Plan: Assessment/plan: * Metastatic breast cancer with Mets skin lung and bone * Diffuse pulmonary infiltrates-etiology which is unclear. * Acute hypoxemic respiratory failure-secondary to above. Etiology which is unclear. Echo shows good ejection fraction. Oxygen requirements still remain high. Patient currently on Vapotherm. Neither Paclitaxel or neratinib are known to cause pneumonitis. Feels this is likely viral -will check high-resolution CT scan of the chest in the morning -increased steroids * Peripheral neuropathy * VT prophylaxis * Stress ulcer prophylaxis * Nutrition-adequate * PT/OT-on hold secondary to oxygen demands Subjective: Resting comfortably in bed. Breathless with exertion. Objective: Vital Signs Temp Pulse Resp BP Pulse Ox 36.6 C 66 18 119/63 93 08/20/18 20:00 08/21/18 04:00 08/21/18 04:00 08/21/18 04:00 08/21/18 04:00 Laboratory Results 08/21/18 06:30 08/21/18 06:30 08/20/18 08/21/18 08/22/18 05:59 05:59 05:59 Intake Total 500 1750 Output Total 850 Balance 500 900 - Time Spent With Patient Time Spent With Patient: 35 min of time spent with patient, over 1/2 involved with coordination of care or counseling. Case discussed with nurse. Had a long discussion with the patient's family regarding questionable prognosis. Physical Exam - Physical Exam General Appearance: alert, no apparent distress EENT: PERRL/EOMI Neck: non-tender, supple Respiratory: chest non-tender, rhonchi (Scattered), No respiratory distress, No wheezing Cardiac/Chest: normal peripheral pulses, regular rate, rhythm Peripheral Pulses: 2+: carotid (R), carotid (L), femoral (R), femoral (L), dorsalis-pedis (R), dorsalis-pedis (L) Abdomen: normal bowel sounds, non-tender, soft Pelvic Exam: deferred Rectal: deferred Skin: normal color, warm/dry Extremities: normal range of motion, non-tender, normal inspection, normal capillary refill Neuro/Psych: no motor/sensory deficits, alert, normal mood/affect, oriented x 3 ICD10 Worksheet Patient Problems: Problems Problem Status Onset Adenocarcinoma of breast Acute Breast cancer metastasized to brain Acute
--- NOTE | 2018-08-21 13:09 | HOSPPROG ---
Hospitalist Progress Note Assessment/Plan: 68-year-old female with past medical history of stage IV metastatic breast cancer, with mets to the brain, bone, and lung admitted with acute pulmonary embolism, acute hypoxemic respiratory failure, and pneumonitis. # acute hypoxemic respiratory failure with ground-glass opacities noted on CT angiogram. * Neither chemotherapeutic agents known to cause pneumonitis * Possible viral pneumonitis as cause for her significant hypoxemia * Doubt PE symptomatic. * Continue steroids, increased per Pulmonary * Check high-resolution CT scan for further evaluation * Continue high-flow oxygen # pulmonary embolus noted on admitting CT angiogram this is small subsegmental PE and her right side, likely asymptomatic. * Currently on Lovenox # Metastatic breast cancer stage IV, on paclitaxel and neratinib; known mets to brain and lung * Appreciate oncology follow-up * Chronic pain due to cancer, on analgesia # chronic anemia # peripheral neuropathy secondary to chemotherapy # depression and memory loss Subjective: Patient new to me and chart reviewed. Discussed at multidisciplinary rounds. Comfortable but quite weak and dyspneic with minimal exertion. Objective: Vital Signs Temp Pulse Resp BP Pulse Ox 36.6 C 69 23 H 115/47 L 91 L 08/21/18 12:00 08/21/18 12:00 08/21/18 12:00 08/21/18 08:00 08/21/18 12:00 Laboratory Results 08/21/18 06:30 08/21/18 06:30 08/20/18 08/21/18 08/22/18 05:59 05:59 05:59 Intake Total 500 1750 Output Total 850 Balance 500 900 - Physical Exam Constitutional: chronically ill appearing Eyes: PERRL Ears, Nose, Mouth, Throat: dry mucous membranes Cardiovascular: regular rate and rhythym Respiratory: bronchial breath sounds, respiratory distress (Mild) Gastrointestinal: soft, non-tender abdomen Genitourinary: no bladder fullness Skin: warm, No normal color (Pale) Musculoskeletal: generalized weakness Neurologic: weakness, No facial droop Psychiatric: interacting appropriately ICD10 Worksheet Patient Problems: Problems Problem Status Onset Breast cancer metastasized to brain Acute Adenocarcinoma of breast Acute
--- NOTE | 2018-08-21 19:12 | SOAPPROG ---
SOAP Progress Note Assessment/Plan: Assessment: SOAP Progress Note Assessment/Plan: Assessment: - metastatic breast CA - multiple prior therapies, with recent treatment of paclitaxel, neratinib, herceptin - - pneumonitis/resp failure - High O2 requirements. Possibly viral, possibly taxol related. Treatment for both is high dose steroids, which she is on. Will wait to see how she responds to the steroids in next 24-48 hours. Limited treatment options even if she recovers from this. Patient is comfortable despite high O2 requirements. If situation deteriorates further, comfort care would be her desired course. She has previously made arrangements for [facility]. Plan: - continue maximal medical therapy Plan: 08/21/18 19:07 Subjective: dyspneic, but comfortable Objective: Vital Signs Temp Pulse Resp BP Pulse Ox 36.7 C 75 24 H 127/60 H 94 08/21/18 15:48 08/21/18 15:48 08/21/18 15:48 08/21/18 15:48 08/21/18 15:48 Laboratory Results 08/21/18 06:30 08/21/18 06:30 08/20/18 08/21/18 08/22/18 05:59 05:59 05:59 Intake Total 500 1750 575 Output Total 850 300 Balance 500 900 275 Physical Exam - Physical Exam General Appearance: mild distress Respiratory: wheezing Cardiac/Chest: regular rate, rhythm, tachycardia, other Abdomen: soft ICD10 Worksheet Patient Problems: Problems Problem Status Onset Adenocarcinoma of breast Acute Breast cancer metastasized to brain Acute
[2018-08-21 22:11] VITALS: BP 134/68
[2018-08-22] MEDS: methylPREDNISolone SOD SUCC 125 MG/2 ML VIAL IVP SCH ×2 (00:04→06:16)
[2018-08-22] MEDS: LORazepam 0.5 MG TAB PO PRN (03:22)
[2018-08-22] MEDS: oxyCODONE IR 5 MG TAB PO PRN (03:22)
[2018-08-22] MEDS: LEVOTHYROXINE 50 MCG TAB PO SCH (06:16)
[2018-08-22] MEDS: LORazepam 0.5 MG TAB PO SCH ×2 (07:56→20:47)
--- NOTE | 2018-08-22 09:56 | SOAPPROG ---
SOAP Progress Note Assessment/Plan: Assessment: SOAP Progress Note Assessment/Plan: Assessment: - metastatic breast CA - multiple prior therapies, with recent treatment of paclitaxel, neratinib, herceptin. Limited remaining options - pneumonitis/resp failure - High O2 requirements. Possibly viral, possibly taxol related. Treatment for both is high dose steroids, which she is on. No significant improvement over night. Having discussions with patient and family about withdrawing care. No final decisions as of yet. Discussed with family, Dr. Celis Consider transfer to oncology oliveros. Subjective: intermittently coherent Objective: Vital Signs Temp Pulse Resp BP Pulse Ox 36.7 C 62 17 134/68 H 92 08/21/18 15:48 08/22/18 08:00 08/22/18 08:00 08/21/18 20:00 08/22/18 08:00 Laboratory Results 08/21/18 06:30 08/21/18 06:30 08/21/18 08/22/18 08/23/18 05:59 05:59 05:59 Intake Total 1750 675 Output Total 850 700 Balance 900 -25 Physical Exam - Physical Exam General Appearance: mild distress ICD10 Worksheet Patient Problems: Problems Problem Status Onset Adenocarcinoma of breast Acute Breast cancer metastasized to brain Acute
[2018-08-22] MEDS: morphINE SR 15 MG TAB PO SCH ×2 (10:37→20:55)
[2018-08-22] MEDS: CITALOPRAM 20 MG TAB PO SCH (10:39)
[2018-08-22] MEDS: AZITHROMYCIN 250 MG TAB PO SCH (10:39)
[2018-08-22] MEDS: PANTOPRAZOLE SODIUM 40 MG TAB PO SCH (10:40)
[2018-08-22] MEDS: ENOXAPARIN 60 MG/0.6 ML SYR SC SCH (10:40)
--- NOTE | 2018-08-22 10:43 | PDINTPN ---
Air Pollution Specialist Progress Note Assessment/Plan: Assessment/plan: * Metastatic breast cancer with Mets skin lung and bone * Diffuse pulmonary infiltrates-etiology which is unclear. No improvement despite best efforts * Acute hypoxemic respiratory failure-secondary to above. Etiology which is unclear. Echo shows good ejection fraction. Oxygen requirements still remain high. Patient currently on Vapotherm. neratinib is not known to cause pneumonitis. Feels this is likely viral -will check high-resolution CT scan of the chest in the morning -increased steroids * Peripheral neuropathy * VT prophylaxis * Stress ulcer prophylaxis * Nutrition-adequate * PT/OT-on hold secondary to oxygen demands * Disposition-likely comfort care withdrawals poor later on this afternoon. Will transfer patient to progressive care unit as she is on high-flow oxygen. Subjective: Very weak and tired. Objective: Vital Signs Temp Pulse Resp BP Pulse Ox 36.7 C 62 17 134/68 H 92 08/21/18 15:48 08/22/18 08:00 08/22/18 08:00 08/21/18 20:00 08/22/18 08:00 Laboratory Results 08/21/18 06:30 08/21/18 06:30 08/21/18 08/22/18 08/23/18 05:59 05:59 05:59 Intake Total 1750 675 Output Total 850 700 Balance 900 -25 - Time Spent With Patient Time Spent With Patient: 35 min of time spent with patient, over 1/2 involved with coordination of care counseling. Case discussed with Nursing and Oncology Physical Exam - Physical Exam General Appearance: alert, other (Drowsy) EENT: PERRL/EOMI, other (Vapotherm) Neck: non-tender, supple Respiratory: respiratory distress, crackles (Scattered), other (Poor air movement) Cardiac/Chest: normal peripheral pulses, regular rate, rhythm Abdomen: normal bowel sounds, non-tender, soft Pelvic Exam: deferred Rectal: deferred Skin: normal color, warm/dry Extremities: normal range of motion, non-tender, normal inspection, normal capillary refill Neuro/Psych: other (Somnolent) ICD10 Worksheet Patient Problems: Problems Problem Status Onset Adenocarcinoma of breast Acute Breast cancer metastasized to brain Acute
[2018-08-22] MEDS ORDERED: BACITRACIN OINTMENT 1 PACKET TP PRN (10:45)
[2018-08-22] MEDS: HYDROmorphONE/DILAUDID 1 MG/ML INJ IVP PRN ×3 (10:46→20:33)
--- NOTE | 2018-08-22 10:55 | HOSPPROG ---
Hospitalist Progress Note Assessment/Plan: 68-year-old female with past medical history of stage IV metastatic breast cancer, with mets to the brain, bone, and lung admitted with acute pulmonary embolism, acute hypoxemic respiratory failure, and pneumonitis. Overall prognosis poor. Discussed in multidisciplinary rounds. # acute hypoxemic respiratory failure with ground-glass opacities noted on CT angiogram. * Neither chemotherapeutic agents known to cause pneumonitis * Possible viral pneumonitis as cause for her significant hypoxemia * Doubt PE symptomatic. * Continue steroids high-flow oxygen, long discussion with patient and Oncology regarding possible transition to comfort care. She is considering this but has not yet made a decision. * Transfer to PCU, patient is stable on current oxygen needs no significant improvement despite high-dose steroids # pulmonary embolus noted on admitting CT angiogram this is small subsegmental PE and her right side, likely asymptomatic. * Currently on Lovenox # Metastatic breast cancer stage IV, on paclitaxel and neratinib; known mets to brain and lung * Appreciate oncology follow-up * Chronic pain due to cancer, on analgesia # chronic anemia # peripheral neuropathy secondary to chemotherapy # depression and memory loss Subjective: Patient discussed in multidisciplinary rounds Objective: Vital Signs Temp Pulse Resp BP Pulse Ox 36.7 C 62 17 134/68 H 92 08/21/18 15:48 08/22/18 08:00 08/22/18 08:00 08/21/18 20:00 08/22/18 08:00 Laboratory Results 08/21/18 06:30 08/21/18 06:30 08/21/18 08/22/18 08/23/18 05:59 05:59 05:59 Intake Total 3171 670 Output Total 655 700 Balance 900 -25 ICD10 Worksheet Patient Problems: Problems Problem Status Onset Breast cancer metastasized to brain Acute Adenocarcinoma of breast Acute
[2018-08-22] MEDS: ONDANSETRON 4 MG/2 ML VIAL IVP PRN (21:18)
[2018-08-22] MEDS ORDERED: GLYCOPYRROLATE 0.2 MG/1 ML VIAL IVP/IM PRN (22:52)
[2018-08-22] MEDS: LORazepam 2 MG/ML INJ IVP PRN (23:45)
[2018-08-23] MEDS: LORazepam 2 MG/ML INJ IVP PRN ×5 (01:07→06:37)
[2018-08-23] MEDS: ATROPINE 1% 5 ML OPHT.BTL SL PRN ×4 (03:08→06:41)
[2018-08-23] MEDS: LEVOTHYROXINE 50 MCG TAB PO SCH (06:26)
[2018-08-23] MEDS: HYDROmorphONE/DILAUDID 1 MG/ML INJ IVP PRN (06:49)
[2018-08-23] MEDS: CITALOPRAM 20 MG TAB PO SCH (09:18)
[2018-08-23] MEDS: LORazepam 0.5 MG TAB PO SCH (09:18)
[2018-08-23] MEDS: morphINE SR 15 MG TAB PO SCH (09:19)
[2018-08-23] MEDS: PANTOPRAZOLE SODIUM 40 MG TAB PO SCH (09:19)
--- NOTE | 2018-08-23 10:07 | ASMTLACE ---
LACE Length of stay for Answers: 4-6 days current admission Acuity / Level of Answers: Yes Care: Did the patient have an inpatient admission? Comorbidities - select Answers: Any tumor (including all that apply lymphoma or leukemia) Other Notes: Hypothyroid; Peripheral neuropathy # of Emergency department Answers: 1-2 visits in the last 6 months Social determinants Answers: Mental health diagnosis (anxiety, depression, pers onality disorders, etc.) Score: 14 Date Signed: 08/23/2018 10:06 AM Electronically Signed By:Carine Gotti RN
--- NOTE | 2018-08-23 17:43 | GDS ---
[f rep st] DISCHARGE SUMMARY NOTE DIAGNOSIS: 1. Acute hypoxemic respiratory failure secondary to diffuse pulmonary infiltrates, etiology unclear, no improvement despite best efforts, and had been on high-flow oxygen. 2. Metastatic breast cancer with metastases to the skin, bone, and lung. 3. Peripheral neuropathy. 4. Small pulmonary embolus noted on CT scan. 5. Chronic anemia. 6. Depression and memory loss. HOSPITAL COURSE: A 68-year-old with a history of stage IV metastatic breast cancer, admitted with ac zak hypoxic respiratory failure and pneumonitis. CTA on admission did show subsegmental pulmonary em bolus as well as diffuse infiltrates, ground-glass infiltrates. She was admitted to the intensive ca re unit. She was a do not resuscitate, do not intubate, and was placed on Vapotherm high-flow oxygen . She was treated in the intensive care unit with high-dose steroids, nebulizers. Despite therapies, the patient continued to do poorly, having minimal reserves on high-flow oxygen. Oncology was also involved in her care and felt that her chemotherapeutic agents were not felt to cau se pneumonitis, and there was a concern for possible viral pneumonitis. After several days in the in tensive care unit with no significant improvement in her status, a family conference was held with he r primary oncologist as well as the concrete precast moulder, and they discussed transition to comfort care. She was eventually transitioned to comfort care, and transferred to the oncology unit, and transitioned o ff high-flow oxygen. She on August 23 at 8:25 in the morning. Vital signs ceased, and family were present at the bedside. The patient was on comfort care at the time of her passing. /[id number]/MODL
== END 2018-08-23 08:25 | disposition expired | DRG 177 ==
LOC: F3E 20:48 → F2N 08-19 16:15 → F1N 08-22 13:49
PROVIDERS: ADMIT Internal Medicine; ATTEND Internal Medicine
DX: J69.0 Pneumonitis due to inhalation of food and vomit (principal); J96.01 Acute respiratory failure with hypoxia; I26.99 Other pulmonary embolism without acute cor pulmonale; C78.00 Secondary malignant neoplasm of unspecified lung; C79.2 Secondary malignant neoplasm of skin; C79.51 Secondary malignant neoplasm of bone; C50.919 Malignant neoplasm of unspecified site of unspecified female breast; E86.9 Volume depletion, unspecified; D53.9 Nutritional anemia, unspecified; F32.9 Major depressive disorder, single episode, unspecified; G62.9 Polyneuropathy, unspecified; R41.3 Other amnesia; Z66 Do not resuscitate; Z51.5 Encounter for palliative care; Z90.13 Acquired absence of bilateral breasts and nipples
CPT/HCPCS: 86300-90; 96365; G0378; J0456; J0696; J1170; J1650; J1940; J2060; J2270; J2405; J2550; J2930; J7613; Q9967